=== PATIENT | male | born 1990 | race American Indian/Alaskan Native ===

== ENCOUNTER 2021-03-07 20:38 | Emergency (ER) | payer OTHER ==
[2021-03-07 20:43] VITALS: BP 127/75
[2021-03-07] MEDS ORDERED: ACETAMINOPHEN 325 MG TAB PO ONE (21:41)
[2021-03-07] MEDS ORDERED: IBUPROFEN 600 MG TAB PO ONE (21:41)
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
== END 2021-03-07 23:26 | disposition home or self-care (01) ==
LOC: ED 20:38
DX: S63.92XA Sprain of unspecified part of left wrist and hand, initial encounter (principal); S43.402A Unspecified sprain of left shoulder joint, initial encounter; S50.12XA Contusion of left forearm, initial encounter; V89.2XXA Person injured in unspecified motor-vehicle accident, traffic, initial encounter; Y93.89 Activity, other specified; Y92.89 Other specified places as the place of occurrence of the external cause; Y99.8 Other external cause status
CPT/HCPCS: 99282